=== PATIENT | female | born 1935 | race Caucasian/White ===

== ENCOUNTER 2017-08-21 12:03 | Emergency (ER) | payer OTHER ==
[~2017-08-21] VITALS: Ht 160 cm; Wt 91.6 kg
[~2017-08-21 12:03] MED LIST: MOBIC15 MG PO
[2017-08-21] MEDS ORDERED: DIOVAN40 MG (12:20)
[2017-08-21] MEDS ORDERED: NAMZARIC 28 MG1 EACH (12:35)
[2017-08-21] MEDS ORDERED: DIOVAN160 M1 (12:35)
== END 2017-08-21 15:37 | disposition home or self-care (01) ==
LOC: ER 12:03
DX: K29.70 Gastritis, unspecified, without bleeding (principal); M94.0 Chondrocostal junction syndrome [Tietze]

== ENCOUNTER 2021-11-25 17:04 | Emergency (ER) | payer OTHER ==
[~2021-11-25] VITALS: Ht 162.6 cm; Wt 77.1 kg
[~2021-11-25 17:04] MED LIST changes: +DIOVAN160 M1; +DIOVAN40 MG; +NAMZARIC 28 MG1 EACH
[2021-11-25] MEDS ORDERED: SEROQUEL50 MG (17:10)
[2021-11-25] MEDS ORDERED: SIMVASTATIN5 MG (17:10)
[2021-11-25] MEDS ORDERED: CARDURA1 MG (17:10)
[2021-11-25] MEDS ORDERED: ZOLOFT100 MG (17:10)
[2021-11-25] MEDS ORDERED: KETO10TA2 PO (18:42)
== END 2021-11-25 19:36 | disposition home or self-care (01) ==
LOC: ER 17:04
DX: S52.601A Unspecified fracture of lower end of right ulna, initial encounter for closed fracture (principal); W18.30XA Fall on same level, unspecified, initial encounter; Y93.01 Activity, walking, marching and hiking; Y92.63 Factory as the place of occurrence of the external cause

== ENCOUNTER 2021-12-01 13:43 | Outpatient (CLI) | payer OTHER ==
[~2021-12-01 13:43] MED LIST changes: +CARDURA1 MG; +KETO10TA2 PO; +SEROQUEL50 MG; +SIMVASTATIN5 MG; +ZOLOFT100 MG
== END 2021-12-01 13:44 | disposition home or self-care (01) ==
LOC: RAD 13:43
PROVIDERS: ATTEND Orthopaedic Surgery
DX: M25.561 Pain in right knee (principal); M25.562 Pain in left knee; S52.591A Other fractures of lower end of right radius, initial encounter for closed fracture

== ENCOUNTER 2022-01-28 15:02 | Outpatient (CLI) | payer OTHER | END 2022-01-28 15:08 | disposition home or self-care (01) | LOC: RAD 15:02 | PROVIDERS: ATTEND Orthopaedic Surgery | DX: S52.691D Other fracture of lower end of right ulna, subsequent encounter for closed fracture with routine healing (principal) ==